=== PATIENT | female | born 1970 | race Caucasian/White ===

== ENCOUNTER → 2016-09-23 | Outpatient (CLI) | payer OTHER ==
[~2016-09-23] MED LIST: ABILIFY5 MG PO; ACETAMINOPHEN PO; ADVAIR 5001 DISK W/D PO; ALBUTEROL17 GM; AMBIEN PO; AMOXICILLIN875 MG PO; ANAPROX DS550 M1 PO; AUGMENTIN PO; BENZONATATE PO; BENZONATATE200 M1 PO; CELEXA PO; CILOXAN5 ML OU; CIPRO PO; COMBIVENT INH14.7 GM INH; DEPAKOTE PO; DOXYCYCLINE HY100 M1 PO; HUMIBID L.1 TAB.SR . PO; KCL PO; KEFLEX500 M2 PO; LANOXIN PO; LASIX PO; LEVAQUIN750 MG; LEXAPRO20 MG PO; MILK OF MAGNESIA PO; NICOTINE T1 PATCH .2 TOP; PHENERGAN25 MG PO; PREDNISONE; PREDNISONE PO; PREDNISONE10 MG/DOSE PO; PROMETHAZINE W118 M1; TAMIFLU75 M1 PO; TOPROL XL PO; TUSSIONEX PENN473 ML PO
--- NOTE | ~2016-09-23 | CT57 ---
[facility] A Service [facility] RADIOLOGY TEXT RESULTS PATIENT: ARLEY PEREA LOCATION: [facility] : 70 UNIT #: [id number] AGE: [address]: BERNARD FORBES MD SEX: F ORDER DR: [id number] [place] [id number] O MR#: [id number] Acc #: [id number] NAME: ARLEY PEREA. : 1970 SEX: F STUDY DATE/TIME: 09/23/2016 11:01 UNIT: [facility] ROOM: STUDY DESCRIPTION: CT Chest Wo Cont Attending Physician: Bernard Forbes M.D. Referring Physician: Bernard Forbes M.D. Ordering Physician: Physician Non-Staff Primary Care Physician: [facility] [[email or web address] MEDICAL IMAGING REPORT This report is preliminary unless electronic signature is present. EXAM High-resolution chest CT without contrast INDICATIONS 46-year-old female with pulmonary hypertension and lung disease. Follow up. TECHNIQUE CT of the chest was performed without contrast. Selected HRCT imaging obtained in the supine and prone positioning. Comparison with 06/14/2009. This CT exam was performed with one or more of the following radiation dose reduction techniques: Automatic exposure control, adjustment of mA and/or kV according to patient size, and iterative reconstruction. FINDINGS There is no airspace consolidation or suspicious pulmonary nodule. Selected HRCT imaging demonstrates no evidence of bronchiectasis, honeycombing or diffuse infiltrative lung disease. No suspicious lymphadenopathy. No pleural effusion. Normal size main pulmonary artery. Limited imaging of the upper abdomen demonstrates diffuse fatty infiltration of the liver. Bone windows are unremarkable. IMPRESSION Negative high-resolution chest CT. Dictated by... Edil Torres M.D. [facility] A Service [facility] RADIOLOGY TEXT RESULTS PATIENT: ARLEY PEREA LOCATION: [facility] : 70 UNIT #: [id number] AGE: [address]: BERNARD FORBES MD SEX: F ORDER DR: THIS IS AN ELECTRONICALLY VERIFIED REPORT Edil Torres M.D. at 09/24/2016 10:01 AM LISA/juanito TD: 09/23/2016 21:49 JOB #: [id number] MEDICAL IMAGING REPORT Page 1 of 1
== END | disposition home or self-care (01) ==
LOC: SCT 10:47
DX: J44.9 Chronic obstructive pulmonary disease, unspecified (principal)
CPT/HCPCS: 71250

== ENCOUNTER → 2017-01-23 | Outpatient (CLI) | payer OTHER ==
--- NOTE | ~2017-01-23 | MR113 ---
[facility]. [facility] A Service [facility] RADIOLOGY TEXT RESULTS PATIENT: ARLEY PEREA LOCATION: [facility] : 70 UNIT #: [id number] AGE: [address]: PETER PANG MD SEX: F ORDER DR: [id number] [place] [id number] O MR#: [id number] Acc #: [id number] NAME: ARLEY PEREA : 1970 SEX: F STUDY DATE/TIME: 01/23/2017 13:06 UNIT: [facility] ROOM: STUDY DESCRIPTION: MR Lumbar Wo Contrast Attending Physician: Peter Pang Referring Physician: Peter Pang Ordering Physician: Marilou Not Listed Primary Care Physician: Peter Pang MRI CENTER REPORT This report is preliminary unless electronic signature is present. EXAM MRI of the lumbar spine without contrast, 01/23/2017. COMPARISON MRI of the lumbar spine without contrast, 01/09/2017. HISTORY Increased low back pain with sciatica in bilateral lower extremities, left greater than right. It has been going on for approximately 4 years. TECHNIQUE Multisequence, multiplanar imaging of the lumbar spine was obtained without contrast. FINDINGS Vertebral body heights and alignment are preserved. Degenerative disc signal loss is at L4-L5. Conus terminates at L1-L2. Signals of conus and cauda equina are within normal limits. Pre- and paravertebral soft tissues do not demonstrate any significant abnormality. L1-L2: Unremarkable. L2-L3, L3-L4: Minimal disc bulge with minimal bilateral facet changes. No canal stenosis or neural foraminal narrowing. L4-L5: Concentric disc bulge without canal stenosis or neural foraminal narrowing. Minimal left facet hypertrophic changes. L5-S1: Unremarkable. IMPRESSION Mild degenerative disc disease is seen in the lumbar spine without any STS. [facility] A Service of [facility] RADIOLOGY TEXT RESULTS PATIENT: ARLEY PEREA LOCATION: [facility] : 70 UNIT #: [id number] AGE: [address]: PETER PANG MD SEX: F ORDER DR: focal significant disc herniation, canal stenosis, or neural foraminal narrowing. Conus and cauda equina are unremarkable. Dictated by... Fady Velasco M.D. THIS IS AN ELECTRONICALLY VERIFIED REPORT Fady Velasco M.D. at 01/24/2017 4:29 PM CPR/danny TD: 01/24/2017 11:53 JOB #: [id number] MRI CENTER REPORT Page 1 of 1
== END | disposition home or self-care (01) ==
LOC: SMRI 12:30
DX: M54.41 Lumbago with sciatica, right side (principal); M54.42 Lumbago with sciatica, left side; M51.16 Intervertebral disc disorders with radiculopathy, lumbar region
CPT/HCPCS: 72148